=== PATIENT | female | born 1935 | race Caucasian/White ===

== ENCOUNTER → 2017-01-13 | Outpatient (CLI) | payer MEDICARE, BC ==
[~2017-01-13] MED LIST: ADVIL200 MG PO; ALDACTONE 25MG25 M1 PO; ALDACTONE 25MG25 MG PO; ALDACTONE25 MG PO; ASPIRIN 81M81 MG/TA2 PO; ASPIRIN E.C. 8181 MG PO; CALCIUM 600 + V1 TA1 PO; CARDI-OMEGA1000 MG PO; CELEXA 20MG20 MG/TAB PO; CELEXA10 MG PO; CRANBERRY450 MG PO; EPA FISH OIL1000 MG PO; EPA/GLA1 SGL PO; FERROUS SU325 MG/TAB PO; FOLIC ACID 40400 MCG PO; HYDROCODONE/APAP; LIPITOR20 MG PO; LISINOPRIL10 MG PO; MACROBID 1100 MG/CAP PO; MORPHINE PAIN PUMP; MULTIPLE VITAMI1 CAP PO; NEURONTIN300 MG PO; NEURONTIN300 MG/CAP PO; NEURONTIN600 MG/TAB PO; NORCO 325 MG-51 TAB PO; PLAVIX 75MG TAB75 MG PO; POTASSIUM '99'620 MG PO; POTASSIUM PO; PRINIVIL10 MG PO; THERAGRAN1 TA1 PO; TOPROL XL 50MG50 MG PO; TOPROL XL100 MG PO; TOPROL XL25 MG PO; TRICOR145 MG PO; VITAMIN B-625 MG PO; VITAMIN C500 MG PO; ZOCOR40 MG PO; [UNRECOGNIZED DRUG - OTHER] PO
== END ==
LOC: COL.VAS 14:00
DX: M79.89 Other specified soft tissue disorders (principal)

== ENCOUNTER 2017-03-21 20:16 | Emergency (ER) | payer MEDICARE, BC ==
[~2017-03-21] VITALS: Ht 160 cm; Wt 79.5 kg
[2017-03-21 20:19] VITALS: TEMP 98.1
[2017-03-21 20:55] LABS: BASO # 0.1 (0.0-0.2); BASO % 0.7 % (0.0-2.0); EOS # 0.3 (0.0-0.7); EOS % 3.9 % (0-4.0); GRAN # 5.8 (1.4-6.5); GRAN % 66.6 % (42.2-75.2); HEMATOCRIT 40.5 % (37.0-47.0); HEMOGLOBIN 13.3 g/dl (12.5-16.0); LYMPH # 1.6 (1.2-3.4); LYMPH % 18.7 % (20.0-51.0); MEAN CELL VOLUME 90 fl (80.0-100.0); MEAN CORPUSCULAR HEMOGLOBIN 30 pg (27.0-31.0); MEAN CORPUSCULAR HGB CONC 33 g/dl (33.0-37.0); MEAN PLATELET VOLUME 11.8 fl (7.4-10.4); MONO # 0.9 (0.1-0.6); MONO % 9.9 % (1.7-9.3); PLATELET COUNT 173 K/mm3 (130-400); RED BLOOD COUNT 4.48 M/mm3 (4.10-5.30); WHITE BLOOD COUNT 8.7 K/mm3 (4.8-10.8)
[2017-03-21 20:57] LABS: PROTHROMBIN TIME 11.1 SECONDS (9.7-12.8)
[2017-03-21 20:59] LABS: PARTIAL THROMBOPLASTIN TIME 29.6 SECONDS (26.0-37.0)
[2017-03-21 21:01] LABS: CREATININE, serum 1.24 mg/dL (0.52-1.25); POTASSIUM 3.9 mmol/L (3.4-5.0)
[2017-03-21] MEDS ORDERED: NORCO 325 MG-51 TAB PO (21:50)
[2017-03-21 22:11] VITALS: BP 136/69; PULSE 60
== END 2017-03-21 22:14 | disposition home or self-care (01) ==
LOC: COL.ER 20:16
PROVIDERS: Emergency Medicine
DX: M79.81 Nontraumatic hematoma of soft tissue (principal); M79.662 Pain in left lower leg; I10 Essential (primary) hypertension; Z79.02 Long term (current) use of antithrombotics/antiplatelets; Z79.82 Long term (current) use of aspirin; Z86.73 Personal history of transient ischemic attack (TIA), and cerebral infarction without residual deficits; Z95.0 Presence of cardiac pacemaker

== ENCOUNTER 2017-05-21 11:15 | Outpatient (RCR) | payer MEDICARE, BC | END 2017-05-22 08:26 | LOC: MKS.ESL.PT 11:15 | DX: M75.01 Adhesive capsulitis of right shoulder (principal); M41.9 Scoliosis, unspecified | CPT/HCPCS: G8978-GP; G8979-GP; G8980-GP ==

== ENCOUNTER 2017-12-03 19:04 | Emergency (ER) | payer MEDICARE, BC ==
[~2017-12-03] VITALS: Ht 160 cm; Wt 77.3 kg
[2017-12-03 19:06] VITALS: TEMP 98.8
[2017-12-03] MEDS ORDERED: NORCO 325 MG-51 TAB PO (20:19)
[2017-12-03 21:00] VITALS: BP 146/64; PULSE 58
== END 2017-12-03 21:00 | disposition home or self-care (01) ==
LOC: COL.ER 19:04
DX: S42.212A Unspecified displaced fracture of surgical neck of left humerus, initial encounter for closed fracture (principal); Z79.02 Long term (current) use of antithrombotics/antiplatelets; Z86.73 Personal history of transient ischemic attack (TIA), and cerebral infarction without residual deficits; W18.09XA Striking against other object with subsequent fall, initial encounter; Y92.009 Unspecified place in unspecified non-institutional (private) residence as the place of occurrence of the external cause

== ENCOUNTER 2018-04-21 11:15 | Outpatient (RCR) | payer MEDICARE, BC | END 2018-05-18 | disposition home or self-care (01) | LOC: MKS.ESL.PT | DX: S42.202D Unspecified fracture of upper end of left humerus, subsequent encounter for fracture with routine healing (principal); X50.0XXD Overexertion from strenuous movement or load, subsequent encounter; Y93.K1 Activity, walking an animal | CPT/HCPCS: G8987-GP; G8988-GP; G8989-GP ==

== ENCOUNTER → 2018-08-26 | Outpatient (CLI) | payer MEDICARE, BC | LOC: MC.RAD 07:52 | DX: Z12.31 Encounter for screening mammogram for malignant neoplasm of breast (principal) ==

== ENCOUNTER 2018-12-07 03:14 | Emergency (ER) | payer MEDICARE, BC ==
[~2018-12-07] VITALS: Ht 162.6 cm; Wt 79.5 kg
[2018-12-07 03:19] VITALS: TEMP 99.4
[2018-12-07 03:46] LABS: BASO # 0.1 (0.0-0.2); BASO % 0.6 % (0.0-2.0); EOS # 0.3 (0.0-0.7); EOS % 3.3 % (0-4.0); GRAN # 6.1 (1.4-6.5); GRAN % 69.9 % (42.2-75.2); HEMOGLOBIN 13.6 g/dl (12.5-16.0); LYMPH # 1.5 (1.2-3.4); LYMPH % 17.6 % (20.0-51.0); MEAN CELL VOLUME 92 fl (80.0-100.0); MEAN CORPUSCULAR HEMOGLOBIN 30 pg (27.0-31.0); MEAN CORPUSCULAR HGB CONC 32 g/dl (33.0-37.0); MEAN PLATELET VOLUME 11.5 fl (7.4-10.4); MONO # 0.7 (0.1-0.6); MONO % 8.4 % (1.7-9.3); PLATELET COUNT 183 K/mm3 (130-400); RED BLOOD COUNT 4.56 M/mm3 (4.10-5.30)
[2018-12-07 03:53] LABS: ALBUMIN 3.8 gm/dL (3.5-5.0); CALCIUM 9.9 mg/dL (8.4-10.2); CREATININE, serum 1.02 mg/dL (0.52-1.25); POTASSIUM 4.2 mmol/L (3.4-5.0); TOTAL PROTEIN 6.7 gm/dL (6.4-8.2)
[2018-12-07] MEDS ORDERED: K-DUR 10 MEQ T10 MEQ PO (05:02)
[2018-12-07] MEDS ORDERED: CRANBERRY500 M3 PO (05:03)
[2018-12-07] MEDS ORDERED: VITAMIN B-625 MG (05:03)
[2018-12-07 07:18] VITALS: BP 110/68; PULSE 70
== END 2018-12-07 07:19 | disposition home or self-care (01) ==
LOC: COL.ER 03:14
PROVIDERS: Emergency Medicine
DX: G45.9 Transient cerebral ischemic attack, unspecified (principal); R51 Headache; I10 Essential (primary) hypertension; E78.5 Hyperlipidemia, unspecified; Z90.49 Acquired absence of other specified parts of digestive tract; Z98.890 Other specified postprocedural states; Z79.82 Long term (current) use of aspirin; Z79.02 Long term (current) use of antithrombotics/antiplatelets
CPT/HCPCS: J1170; J1200; J1885; J2405; J3010; J7030; J7040

== ENCOUNTER 2020-03-07 19:16 | Emergency (ER) | payer MEDICARE, BC ==
[~2020-03-07] VITALS: Ht 162.6 cm; Wt 77.3 kg
[~2020-03-07 19:16] MED LIST changes: +CRANBERRY500 M3 PO; +K-DUR 10 MEQ T10 MEQ PO; +VITAMIN B-625 MG
[2020-03-07 19:17] VITALS: TEMP 98.5
[2020-03-07] MEDS ORDERED: XARELTO10 MG PO (19:23)
[2020-03-07 20:17] LABS: BASO % 0.4 % (0.0-2.0); EOS # 0.2 (0.0-0.7); EOS % 2.1 % (0-4.0); GRAN # 7.9 (1.4-6.5); GRAN % 80.9 % (42.2-75.2); HEMATOCRIT 39.8 % (37.0-47.0); HEMOGLOBIN 12.6 g/dl (12.5-16.0); LYMPH # 0.8 (1.2-3.4); MEAN CELL VOLUME 95 fl (80.0-100.0); MEAN CORPUSCULAR HEMOGLOBIN 30 pg (27.0-31.0); MEAN CORPUSCULAR HGB CONC 32 g/dl (33.0-37.0); MEAN PLATELET VOLUME 10.7 fl (7.4-10.4); MONO # 0.8 (0.1-0.6); MONO % 7.9 % (1.7-9.3); PLATELET COUNT 153 K/mm3 (130-400); RED BLOOD COUNT 4.19 M/mm3 (4.10-5.30)
[2020-03-07 20:26] LABS: ALBUMIN 3.7 gm/dL (3.5-5.0); BILIRUBIN,TOTAL 1.1 mg/dL (0.0-1.0); CALCIUM 10.2 mg/dL (8.4-10.2); CREATININE, serum 1.26 (0.52-1.25); POTASSIUM 4.4 mmol/L (3.4-5.0); TOTAL PROTEIN 6.9 gm/dL (6.4-8.2)
[2020-03-07 20:28] LABS: INR 2.1 (0.8-3.0); PROTHROMBIN TIME 23.1 SECONDS (9.7-12.8)
[2020-03-07 20:30] LABS: PARTIAL THROMBOPLASTIN TIME 38.1 SECONDS (26.0-37.0)
[2020-03-07 21:22] VITALS: BP 123/59; PULSE 71
== END 2020-03-07 21:35 | disposition short-term general hospital (02) ==
LOC: COL.ER 19:16
PROVIDERS: Emergency Medicine
DX: S06.5X0A Traumatic subdural hemorrhage without loss of consciousness, initial encounter (principal); S01.01XA Laceration without foreign body of scalp, initial encounter; I10 Essential (primary) hypertension; R40.2412 Glasgow coma scale score 13-15, at arrival to emergency department; Z86.73 Personal history of transient ischemic attack (TIA), and cerebral infarction without residual deficits; Z95.0 Presence of cardiac pacemaker; Z79.82 Long term (current) use of aspirin; W17.89XA Other fall from one level to another, initial encounter; Y92.009 Unspecified place in unspecified non-institutional (private) residence as the place of occurrence of the external cause

== ENCOUNTER 2020-03-12 10:56 | Inpatient (IN) | payer MEDICARE, BC ==
[~2020-03-12] VITALS: Ht 160 cm; Wt 81.5 kg
[~2020-03-12 10:56] MED LIST changes: +XARELTO10 MG PO
[2020-03-12] MEDS ORDERED: TYLENOL 325MG325 MG PO (16:07)
[2020-03-12] MEDS ORDERED: VITAMIN B12 1541 TAB PO (16:09)
[2020-03-12] MEDS ORDERED: PEPCID 20MG TAB20 MG PO (16:10)
[2020-03-12] MEDS ORDERED: KEPPRA 500MG500 MG PO (16:11)
[2020-03-12] MEDS ORDERED: LIPITOR20 MG PO (16:11)
[2020-03-12] MEDS ORDERED: CELEXA10 MG PO (16:12)
[2020-03-12 16:45] VITALS: BP 140/43; PULSE 62; TEMP 98.3
--- NOTE | 2020-03-12 17:00 | NUR ---
Patient arrived via wheelchair from [facility] this afternoon. Patient is A&Ox4 and currently resting in bed, call light in reach and alarm is set. Patient eating supper at this time. Patient called her daughter to let her know that she had arrived. Patient was instructed on IPR protocols and use of her call light and TV. Patient denied pain at this time. Will continue to monitor.
--- NOTE | 2020-03-12 19:10 | NUR ---
PATIENT UP IN CHAIR DURING CHANGE OF SHIFT REPORT RECEIVED FROM DAY SHIFT NURSEPELON. CHAIR ALARM ON.
--- NOTE | 2020-03-12 20:00 | NUR ---
DECREASED STRENGTH TO GUS EXTREMITIED WITH MOVEMENT SLOW, REPORTS PAIN TO L KNEE WITH MOVEMENT/WEIGHT BEARING. BED ALARM ON. DENIES NUMBNESS/TINGLING TO GUS EXTREMITIES. DENIES CHEST PAIN/SHORTNESS OF BREATHE AT THIS TIME.
--- NOTE | 2020-03-13 01:12 | NUR ---
PATIENT SLEEPING BREATHING NONLABORED AND EVEN. BED ALARM ON.
--- NOTE | 2020-03-13 03:21 | NUR ---
SLEEPING, BREATHING NONLABORED AND EVEN, DOES NOT AWAKEN WHEN DOOR TO ROOM IS OPENED. BED ALARM ON.
[2020-03-13 06:14] VITALS: BP 133/46; PULSE 60; TEMP 98.4
--- NOTE | 2020-03-13 07:13 | NUR ---
PATIENT UP IN CHAIR DURING CHANGE OF SHIFT REPORT GIVEN TO DAY SHIFT NURSEGIULIANA. CHAIR ALARM ON.
--- NOTE | 2020-03-13 07:15 | NUR ---
shift report received from EDYTA Linder
--- NOTE | 2020-03-13 07:52 | NUR ---
up in chair having breakfast, denies needs
--- NOTE | 2020-03-13 08:30 | NUR ---
physical therapy in to work with patient
--- NOTE | 2020-03-13 09:30 | NUR ---
returned from therapy and resting in recliner, full assessment completed, see interventions for further info, has 3+ edema to lower extremities and feet, has bruising to top of right foot and also to left foot and around the toes on left foot, takes am meds without difficulty
--- NOTE | 2020-03-13 10:15 | NUR ---
speech therapy in to work with patient
--- NOTE | 2020-03-13 11:06 | NUR ---
occupational therapy in working with patient
--- NOTE | 2020-03-13 13:02 | NUR ---
physical therapy in to work with patient
--- NOTE | 2020-03-13 17:49 | NUR ---
has resting in recliner throughout the afternoon, denies needs
[2020-03-13 18:07] VITALS: BP 130/50; PULSE 65; TEMP 97.9
--- NOTE | 2020-03-13 18:50 | NUR ---
bedside shift report given to EDYTA Linder
--- NOTE | 2020-03-13 19:00 | NUR ---
PATIENT UP IN CHAIR, SLEEPING WITH CELL PHONE IN HER HAND DURING CHANGE OF SHIFT REPORT RECEIVED FROM DAY SHIFT NURSE, GIULIANA. AWAKENED WITH NAME CALLED. CHAIR ALARM ON.
--- NOTE | 2020-03-13 20:00 | NUR ---
HX SCOLIOSIS TO BACK, UP WITH HELP WITH GB AND WW. DENIES NUMBNESS/TINGLING TO EXTREMITIES. DENIES CHEST PAIN/SHORTNESS OF BREATHE. ERNESTO TO BACK TO HEAD INTACT WITH DRIED BLOOD MATTING HAIR DOWN WITH NO ACTIVE DRAINAGE/BLEEDING OBSERVED FROM SITE. ANSWERS QUESTIONS APPROPRIATELY, SPEAKS CLEARLY DURING CONVERSATION WITH STAFF. CHAIR ALARM ON WHILE SITTING UP IN CHAIR.
--- NOTE | 2020-03-14 00:30 | NUR ---
Patient sleeping with room lights and TV on. Breathing nonlabored and even and does not awaken when door to room is opened by staff. Bed alarm on.
[2020-03-14 01:35] VITALS: BP 113/55; PULSE 67; TEMP 98.1
--- NOTE | 2020-03-14 07:37 | NUR ---
Patient resting in recliner call light in reach and alarm set. Patient reporting sleeping well last night. Some wheezing to bilateral lower lungs this morning. Will discuss with physician.
--- NOTE | 2020-03-14 07:43 | NUR ---
Patient up in chair, eating breakfast during change of shift report given to day shift nurseMounika. Chair alarm on.
[2020-03-14 08:25] LABS: BASO % 0.6 % (0.0-2.0); EOS # 0.3 (0.0-0.7); EOS % 5.2 % (0-4.0); GRAN # 3.8 (1.4-6.5); GRAN % 76.8 % (42.2-75.2); HEMOGLOBIN 10.1 g/dl (12.5-16.0); LYMPH # 0.5 (1.2-3.4); MEAN CELL VOLUME 95 fl (80.0-100.0); MEAN CORPUSCULAR HEMOGLOBIN 30 pg (27.0-31.0); MEAN CORPUSCULAR HGB CONC 32 g/dl (33.0-37.0); MEAN PLATELET VOLUME 10.8 fl (7.4-10.4); MONO # 0.4 (0.1-0.6); PLATELET COUNT 165 K/mm3 (130-400); RED BLOOD COUNT 3.32 M/mm3 (4.10-5.30); REDCELL DISTRIBUTION WIDTH-CV 14.7 % (11.5-14.5)
[2020-03-14 08:26] LABS: HEMATOCRIT 31.5 % (37.0-47.0)
[2020-03-14 08:36] LABS: CALCIUM 9.4 mg/dL (8.4-10.2); CREATININE, serum 0.93 (0.52-1.25); MAGNESIUM 1.4 mg/dL (1.6-2.3); POTASSIUM 3.9 mmol/L (3.4-5.0)
--- NOTE | 2020-03-14 12:43 | NUR ---
The patient is new to [facility]. DANN met with the patient to complete initial intake. The patient lives in alone in [place]. The patient has a walker, cane, shower chair and is independent with ADLs. The patient has had HHS in the past but does not receive those services now. The patient's PCP is Dr. Delong and patient receives medications from [facility]. The patient does not have advanced directives in the EMR but states they are complete and designate her daughters, Christal and Woodrow/Mounika. DANN will continue to monitor.
--- NOTE | 2020-03-14 16:21 | NUR ---
SW's met with the patient to present and review the IPR Team Conference Note. SW discussed the patient's progress and the team's tentative discharge date for Thursday, 03/23, with home healthPT/OT. The patient reports that she does not want to be here until then. She would like to discharge sooner. DANN then discussed getting a family meeting scheduled for next week, by Thursday. The patient reports that she would like to talk to her children first about setting up a meeting. SW to follow up with the patient and will continue to follow.
[2020-03-14 17:43] VITALS: BP 144/51; PULSE 75; TEMP 97.9
--- NOTE | 2020-03-14 18:31 | NUR ---
Patient was informed of the no visitor policy put into effect this evening.
--- NOTE | 2020-03-14 19:28 | NUR ---
Reported off to night nurse.
--- NOTE | 2020-03-14 21:00 | NUR ---
PLEASANT, ALERT & ORIENTED. ASSESSMENT COMPLETED. HRR. HAS PACEMAKER. HAS PAIN PUMP W/MS FOR CHRONIC BACK PAIN. DR ALEJANDRE MANAGES THIS. TYLENOL GIVEN FOR BACK DISCOMFORT. PAIN INCREASES WITH ACTIVITY. LT FOOT ELEVATED. DARK DISCOLORATION AND BRUISING TO TOES. CALL LIGHT IN REACH. BED ALARM SET.
[2020-03-15 06:00] VITALS: BP 110/45; PULSE 60; TEMP 98.8
--- NOTE | 2020-03-15 07:54 | NUR ---
PATIENT REQUESTING TYLENOL THIS MORNING FOR HER CHRONIC BACK PAIN. PATIENT STATES THAT THE PAIN PUMP DOESNT SEEM TO BE MANAGING HER PAIN VERY WELL. PATIENT REQUESTING FOR DR. ALEJANDRE TO INCREASE HER DOSAGE ON THE PAIN PUMP. DR. OLMSTEAD MADE AWARE OF INADEQUATE PAIN MANAGEMENT.
--- NOTE | 2020-03-15 12:26 | NUR ---
PATIENT REQUESTED A PAIN PILL FOR HER BACK PAIN PRIOR TO FINISHING THERAPY THIS AFTERNOON. PATIENT EDUCATED ON PAIN MANAGEMENT AND REQUESTING PAIN MEDICATIONS WHEN SHE NEEDS THEM. PATIENT STATES THAT THE PAIN IS WORSE WHEN SHE IS UP AND MOVING ON HER FEET. NORCO GIVEN AT THIS TIME. WILL CONTINUE TO MONITOR.
--- NOTE | 2020-03-15 14:25 | NUR ---
Admission QIM scores were reviewed by the team. Code of 5 chosen for oral hygiene was determined by team discussion to be the most usual performance before interventions for this patient during the assessment period. Code of 4 chosen for toilet hygiene was determined by team discussion to be the most usual performance for this patient during the assessment period. Code of 3 chosen for toilet transfers was determined by team discussion to be the most usual performance for this patient during the assessment period. Code of 3 chosen for sit to stand was determined by team discussion to be the most usual performance for this patient during the assessment period. Code of 3 chosen for walk 10 feet was determined by team discussion to be the most usual performance for this patient during the assessment period.--Eusebia Ramachandran, PD
--- NOTE | 2020-03-15 14:30 | NUR ---
PATIENT RESTING IN CHAIR AFTER THERAPY WITH LEGS ELEVATED. PATIENT STATES THAT SHE COULD TELL A DIFFERENCE IN HER PAIN LEVEL THROUGHOUT HER AFTERNOON THERAPY AND STATES THAT IT HAS IMPROVED AND IS NOW TOLERABLE.
[2020-03-15 17:50] VITALS: BP 133/50; PULSE 63; TEMP 97.5
--- NOTE | 2020-03-15 21:00 | NUR ---
PT SITTING IN RECLINER.ENC TO ELEVATE FOOT OF RECLINER MUCH POSSIBLE. PT AGREED. SEVERE SCOLIOSIS NOTED. NOT READY TO GO TO BED YET. PT ASKING FOR PAIN MED FOR LOW BACK PAIN. SEE MAR.
--- NOTE | 2020-03-16 04:21 | NUR ---
PT NEEDED ASSIST OUT OF BED TO SITTING POSITION. ABLE TO TRANSFER SELF TO TOILET AND REMOVE CLOTHING. ABLE TO PERFORM TOILETING TASK AND HYGIENE. BACK TO BED. NEEDED ASSIST LIFTING FEET INTO BED. SCD'S BACK ON. CALL LIGHT IN REACH. BED ALARM SET.
[2020-03-16 06:00] VITALS: BP 114/43; PULSE 59; TEMP 98.6
--- NOTE | 2020-03-16 14:49 | NUR ---
SW met with the patient to address any questions or concerns. The patient did not have any questions or concerns at this time.
--- NOTE | 2020-03-16 16:56 | NUR ---
Patient currently resting in bedside recliner. Patient has remained alert and oriented all shift. Patient uses call light when she has needs, is a SBA when transferring and ambulating. Is able to preform all personal hygiene and toileting activities. Patient has requested PRN pain medication once prior to therapy, administered per request. Patient currently denies needs, call light within reach.
[2020-03-16 18:00] VITALS: BP 117/41; PULSE 62; TEMP 98.1
--- NOTE | 2020-03-16 18:50 | NUR ---
Received report from [place]. Patient is asleep in the wheelchair. Call light within reach.
--- NOTE | 2020-03-16 20:00 | NUR ---
Assisted patient in the bathroom. Cane and gaitbelt utilized. She brushed her teeth independently. Then assisted patient back to bed. She requested for tedhose stockings to be removed. SCD applied on both lower extremities. She states she has back pain with pain score of 4/10. [place] PRN given.
--- NOTE | 2020-03-17 00:05 | NUR ---
Assisted patient in the bathroom to urinate. She states she has tolerable pain. Denies need for pain medication.
--- NOTE | 2020-03-17 02:00 | NUR ---
Lucie EDGAR, assisted patient to the bathroom to urinate. This nurse asked if she has pain and said that she's hurting but not that much. Pain score is 4/10. She just requested for Tylenol instead of [place].
--- NOTE | 2020-03-17 04:20 | NUR ---
Assisted patient in the bathroom. Patient urinate. Assisted back to bed. Put back SCD. She states Tylenol helped her with the pain. Still with pain at the back with pain score of 4-5/10 but refuses pain medication for now.
[2020-03-17 06:09] VITALS: BP 112/45; PULSE 56; TEMP 98.6
--- NOTE | 2020-03-17 07:11 | NUR ---
Endorsed patient to Veronika. Patient had an uneventful night. With complains of pain but was relieved with [place] and Tylenol. She gets up in the bathroom with walker and assisted with gaitbelt.
[2020-03-17 16:48] VITALS: BP 135/49; PULSE 61; TEMP 98.1
--- NOTE | 2020-03-17 18:55 | NUR ---
PATIENT REQUESTED A PAIN PILL PRIOR TO WORKING WITH THERAPIES THIS MORNING. PATIENT UP TO THE CHAIR DURING MY SHIFT WHEN NOT IN THERAPY. PATIENT ABLE TO WALK TO THE RESTROOM WITH CONTACT GAURD DUE TO WEAKNESS. LEGS ELEVATED ON PILLOWS. PATIENT WATCHING TV. CHAIR ALARM ON. REPORT GIVEN TO EDYTA ALVARADO.
--- NOTE | 2020-03-17 19:26 | NUR ---
Received report from Veronika. Patient is awake sitting in the recliner. She verbalizes need for help in getting to the bathroom. Assisted patient with gaitbelt and she uses her walker. She changed her clothes as well with assistance. Returned back to recliner.
[2020-03-18 06:01] VITALS: BP 130/52; PULSE 68; TEMP 97.9
--- NOTE | 2020-03-18 07:06 | NUR ---
Patient had an uneventful night. Requested for pain medicine once last night. She would call for assistance in the bathroom. Endorsed patient to Emerita. Patient at recliner right now.
--- NOTE | 2020-03-18 07:10 | NUR ---
up in recliner appears to be dozing,
--- NOTE | 2020-03-18 09:00 | NUR ---
full assessment completed, see intervention for further info
--- NOTE | 2020-03-18 10:00 | NUR ---
assosted up to bathroom and voids qs, c/o some urgency with urination and minimal burning, UA collected and to lab, dressed independently
[2020-03-18 10:28] LABS: COLLECTION METHOD CLEAN CATCH
[2020-03-18 10:38] LABS: MUCOUS Present /lpf; PH 7 (5-8); SQUAMOUS EPITHELIAL 0-2 /hpf; URINE APPEARANCE Hazy; URINE BACTERIA None Seen /hpf; URINE BILIRUBIN Negative (NEGATIVE); URINE BLOOD Negative (NEGATIVE); URINE COLOR Yellow; URINE GLUCOSE Negative (NEGATIVE); URINE KETONE Negative (NEGATIVE); URINE LEUKOCYTE ESTERASE 3+ (NEGATIVE); URINE NITRATE Negative (NEGATIVE); URINE PROTEIN(semi-quant) Negative (NEGATIVE); URINE RBC 0-2 /hpf
--- NOTE | 2020-03-18 10:44 | NUR ---
ZULMA Cristobal notified results of urine are back, verbalizes understanding
--- NOTE | 2020-03-18 12:30 | NUR ---
remains up in chair, is now having lunch
[2020-03-18 16:30] VITALS: BP 119/52; PULSE 60; TEMP 99.1
--- NOTE | 2020-03-18 16:41 | NUR ---
has been in recliner throughout the day, assisted up to bathroom when requested, moves with slow steady gait,
--- NOTE | 2020-03-18 18:43 | NUR ---
PATIENT UP IN CHAIR, HAS NOT C/O CURRENTLY, STATED SHE WOULD LIKE PAIN MEDS WITH HS MEDS OF EITHER TYLENOL OR NORCO. CHAIR ALARM ON.
--- NOTE | 2020-03-18 20:00 | NUR ---
CONTINUES WITH SCOLIOSIS TO BACK, ABLE TO AMB WITH SBA WHEN UP WALKING, GETS UP FROM SIT TO STAND SLOWLY WITH NO PROBLEMS BUT IS UNABLE TO STAND UP STRAIGHT D/T SEVERE SCOLIOSIS, C/O BACK PROBLEMS AND PAIN AT TIMES. DENIES NUMBNESS/TINGLING TO EXTREMITIES AT THIS TIME. EDEMA WORSE TO LLE COMPARED TO RLE. NO PROBLEMS WITH SWALLOWING MEDS WHOLE OR EATING SOLID FOOD.
--- NOTE | 2020-03-19 03:30 | NUR ---
PATIENT SLEEPING, DOES NOT AWAKEN WHEN DOOR TO ROOM IS OPENED BY STAFF, OBSERVED RESP NONLABORED AND EVEN. BED ALARM ON.
[2020-03-19 05:58] VITALS: BP 138/49; PULSE 66; TEMP 98.6
--- NOTE | 2020-03-19 07:00 | NUR ---
PATIENT UP IN CHAIR DURING REPORT WITH CHAIR ALARM ON.
--- NOTE | 2020-03-19 12:29 | NUR ---
Food Services Director met with patient to follow up from the weekend. Patient states the weekend went well. SW spoke with patient about Home Health and provided Medicare.gov list of HH agencies. Patient states she will look this over but didn't want to pick one right now. Patient would like to review this list with her daughter. SW contacted patient's daughter, Christal to schedule family meeting for 03/20/20 @ [id number]. DANN provided meeting time to Eusebia [facility] Director. DANN will continue to follow.
--- NOTE | 2020-03-19 16:07 | NUR ---
Patient resting in recliner at this time, call light in reach and alarm set. Patient given her rocephin this afternoon. Patient has some expiratory wheezing to her left upper lobe. She was encouraged to cough, deep breath and to continue to use her IS. Patient currently does not have any orders for any breathing treatments will discuss with the physician.
--- NOTE | 2020-03-19 16:21 | NUR ---
Worked with patient using her IS device. Patient used appropriatly twice out of ten tries this afternoon. Patient was educated on how to use it and encouraged to use at least 5 times an hour. RT stopped by to check on patient as well. She has not had any SOB at rest only with exercising with PT and OT. Will continue to monitor.
[2020-03-19 17:24] VITALS: BP 140/77; PULSE 62; TEMP 98
--- NOTE | 2020-03-19 19:07 | NUR ---
PATIENT UP IN CHAIR DURING CHANGE OF SHIFT REPORT RECEIVED FROM DAY SHIFT NURSEPELON. CHAIR ALARM ON. NO OTHER NEEDS REPORTED.
--- NOTE | 2020-03-20 02:03 | NUR ---
UP TO BATHROOM ROOM, DENIES ANY NEEDS AT THIS TIME, AMBULATES WITH STEADY GAIT WITH OBSERVED SLOW MOVEMENT CURRENTLY.
[2020-03-20 05:24] VITALS: BP 123/52; PULSE 61; TEMP 99
--- NOTE | 2020-03-20 06:03 | NUR ---
PATIENT SLEEPING, DENIES ANY NEEDS WHEN VS TAKEN. BED ALARM ON.
--- NOTE | 2020-03-20 07:11 | NUR ---
PATIENT UP IN CHAIR DURING CHANGE OF SHIFT REPORT GIVEN TO DAY SHIFT NURSEPELON. CHAIR ALARM ON.
--- NOTE | 2020-03-20 07:42 | NUR ---
Patient resting in recliner, call light in reach and chair alarm set. Patient denies pain without movement, but once she starts moving pain to her back is felt. Will continue to monitor.
--- NOTE | 2020-03-20 11:11 | NUR ---
Patient at group therapy at this time.
--- NOTE | 2020-03-20 14:05 | NUR ---
Mallet And Die Cutter participated in family meeting which included IPR Director Eusebia and PT/OT/ST. Patient's daughter, Christal participated by phone. Eusebia opened the meeting by explaining it's purpose then PT/OT/ST reviewed patient's progress. Discharge date is set for 03/23/20. SW followed up with patient after the meeting to discuss HH options. Patient states she is having difficulty choosing a HH agency because she doesn't know anything about them. Patient would like two referrals sent out and for the agencies to call her on her cell phone (ph#[phone]) so she can talk with them before making a final decision. Patient would like referrals sent to [facility] and [facility]. SW faxed referrals then called Gela at [facility] and Ronda at [facility] to provide request that they call patient. DANN called patient's daughter, Christal and left a message. DANN will continue to follow.
--- NOTE | 2020-03-20 16:45 | NUR ---
Left message for Dr. Delong's office for a return call to set up one week follow up appointment for patient. Awaiting a return call.
[2020-03-20 16:57] VITALS: BP 120/44; PULSE 60; TEMP 98.8
--- NOTE | 2020-03-20 18:56 | NUR ---
PATIENT UP IN CHAIR DURING CHANGE OF SHIFT REPORT RECEIVED FROM DAY SHIFT NURSEPELON. CHAIR ALARM ON.
--- NOTE | 2020-03-20 19:08 | NUR ---
Patient will be discharged on Thursday. Denies any questions at this time. Appointment for neuro still needs to be made and question if patient can have her siena removed before discharge will be discussed with Dr. Sanchez via the day nurse.
--- NOTE | 2020-03-20 19:58 | NUR ---
PATIENT DENIES ANY NEEDS FOR PAIN AT THIS TIME, DOES REQUEST TO HAVE PAIN MEDS WITH HS MEDS TO HELP WITH PAIN DURING SLEEP/NIGHT ACTIVITIES. CONTINUES WITH SCOLIOSIS TO BACK, AMBULATES SLUMPED POSTURE.
--- NOTE | 2020-03-21 00:44 | NUR ---
PATIENT SLEEPING, DOES NOT AWAKEN WHEN DOOR TO ROOM IS OPENED BY STAFF. BREATHING NONLABORED AND EVEN. BED ALARM ON.
[2020-03-21 06:28] VITALS: BP 119/52; PULSE 60; TEMP 99
--- NOTE | 2020-03-21 07:44 | NUR ---
PATIENT UP IN CHAIR DURING CHANGE OF SHIFT REPORT GIVEN TO DAY SHIFT NURSESAFIA. CHAIR ALARM ON.
--- NOTE | 2020-03-21 16:14 | NUR ---
Costuming Supervisor met with patient to review and provide copy of team conference notes. Discharge date is set for 03/23/20. Patient advised she has been in contact with [facility] and wants to choose them to provide services. DANN contacted Adrianne at [facility] and will fax discharge orders on Thursday. DANN contacted Ronda at [facility] and thanked her for reviewing referral. DANN contacted patient's daughter, Christal to provide update. DANN will continue to follow.
[2020-03-21 17:15] VITALS: BP 113/45; PULSE 60; TEMP 97.8
--- NOTE | 2020-03-21 19:00 | NUR ---
PATIENT IS MOD-I IN THE ROOM. DURING SHIFT REPORT PATIENT WAS WALKING FROM THE BATHROOM TO THE RECLINING CHAIR. PATIENT DENIES ANY NEEDS AT THIS TIME. REPORT GIVEN TO EDYTA ALVARADO.
--- NOTE | 2020-03-21 19:10 | NUR ---
Received report from Veronika. Seen patient awake, sitting in the recliner. With INT on right forearm. Assisted patient in the bathroom. She is a standby assist. She walks with a steady gait. She brushed her teeth unassisted. With tedhose stockings on bilateral lower extremities. Call light within reach.
--- NOTE | 2020-03-21 22:00 | NUR ---
Patient complains of tightness on her SCD and feels like she was having difficulty of breathing because of it. SCD's were removed. SPO2 checked, 94% on room air. She said she feels like the setting on her SCD were changed. Will recheck her again.
--- NOTE | 2020-03-22 | NUR ---
Patient called and asked for assistance in the bathroom. This nurse asked the patient if she still have some difficulty of breathing and she said she don't think so as she was asleep. After urinating, asked again if she's having difficulty of breathing now and she said no.
[2020-03-22 05:46] VITALS: BP 135/59; PULSE 61; TEMP 98.5
--- NOTE | 2020-03-22 09:50 | NUR ---
CALLED AND NOTIFIED THAT THE PATIENT HAS A RASH UNDERNEATH HER PANNUS. TORB DESENEX POWDER FROM TO THIS NURSE.
[2020-03-22] MEDS ORDERED: DESENEX TP (11:35)
[2020-03-22] MEDS ORDERED: PEPCID 20MG TAB20 MG PO (11:35)
[2020-03-22] MEDS ORDERED: KEPPRA 500MG500 MG PO (11:36)
[2020-03-22] MEDS ORDERED: OMNICEF 300MG300 MG PO (11:38)
--- NOTE | 2020-03-22 16:02 | NUR ---
Publications Editor collaborated with Veronika LAN to schedule follow up appointment for Neurology. Per Veronika, patient does not have established neurologist. SW contacted patient's daughter, Christal to inquire if patient sees a local neurologist. Christal states patient does not but would like appointment set up wherever Dr. Delong (primary care) recommends. DANN contacted EDYTA Vicente-Card Grinder Helper at [facility] who followed up with Dr. Delong on this request. Cinthia advised Dr. Delong recommends Dr. Arredondo. DANN provided this information to Veronika who will schedule follow up. SW will continue to follow.
[2020-03-22 16:41] VITALS: BP 143/50; PULSE 62; TEMP 98
--- NOTE | 2020-03-22 19:00 | NUR ---
PATIENT IS SITTING UP IN THE BEDSIDE CHAIR DURING SHIFT REPORT. PATIENT DENIES PAIN AT THIS TIME. PATIENT MELINDA IN THE ROOM THROUGHOUT MY SHIFT. REPORT GIVEN TO EDYTA REIS.
--- NOTE | 2020-03-22 20:30 | NUR ---
PT SITTING IN RECLINER. MOD I IN ROOM. PLANNED DISCHARGE TOMORROW. NOTED SEVERE SCOLIOSIS. ABLE TO MANAGE SELF CARES AND AMBULATION WITH WALKER. ENC PT TO CALL FOR ASSISTANCE IF NEEDED. SEE MAR FOR PAIN MEDS GIVEN THIS SHIFT. INT TO RT FOREARM INFILTRATED. DC'D AT THIS TIME. PT VERY DIFFICULT STICK. WILL CONFER WITH IN AM REGARDING CHANGING OVER TO PO ABT. DEEP RED INFLAMMATION TO PANNUS AND BILAT GROIN. AREA CLEANED AND DRIED WELL. APPLIED DESENEX TO THIS AREA. PT HAS TIGHT GIRDLE LIKE UNDERWEAR WITH VAGINAL PAD FOR URINARY INCONTINENCE NOTED. ENC TO BUY LOOSE FITTING UNDERWEAR. REFUSES TO TAKE OFF TO LET AIR. PLACED PILLOW CASE TO PANNUS AREA.
[2020-03-23 05:34] VITALS: BP 125/60; PULSE 60; TEMP 98.9
--- NOTE | 2020-03-23 09:51 | NUR ---
Patient resting in recliner at this time, call light in reach and is independent in her room. Patient uses walker for ambulation. Independent with grooming and eating, walking with walker, independent with mobility in bed and out of bed. Wipes self and applies desenex powder independently this morning. Patient thinks she will be leaving later this afternoon. SW visited with patient. Reports some mild pain and given prn pain med this am. Will continue to monitor.
--- NOTE | 2020-03-23 10:01 | NUR ---
Belt Line Feeder met with patient, who will discharge today. SW read IM form aloud to patient who verbalized understanding and gave SW permission to sign on her behalf. SW placed form in chart and provided copy to patient. DANN faxed discharge orders to [facility]. No additional needs at this time.
--- NOTE | 2020-03-23 12:27 | NUR ---
Patient resting in recliner and is independent with therapies. This nurse removed 6 siena from posterior area of patient's head. Patient tolerated with minimal discomfort reported. Patient denies any pain at this time.
--- NOTE | 2020-03-23 15:59 | NUR ---
Patient Health Summary, Discharge Summary, and Home Meds printed and reviewed with patient and daughter. Stressed importance of follow up appointments. Called prescriptions for KEPPRA, Pepcid, Omnicef and Citalopram to [facility] as the original Rx was sent to wrong pharmacy [facility]. This nurse cancelled the order to [facility] so that [facility] could bill insurance company properly. Belongings gathered by patient and Mounika/RN including quad cane, cell phone, track machine operator repairer, clothes, ring, glasses and dirty clothes from hamper. Patient tranported via wheelchair by WANDER/Audie and seatbelted for ride home with daughter. Patient and daughter denied questions.
== END 2020-03-23 16:00 | disposition home health service (06) | DRG 950 ==
PROVIDERS: ADMIT Internal Medicine
DX: S06.5X9D Traumatic subdural hemorrhage with loss of consciousness of unspecified duration, subsequent encounter (principal); I10 Essential (primary) hypertension; I48.0 Paroxysmal atrial fibrillation; G89.29 Other chronic pain; W19.XXXD Unspecified fall, subsequent encounter; Z86.73 Personal history of transient ischemic attack (TIA), and cerebral infarction without residual deficits; Z95.0 Presence of cardiac pacemaker; Z96.651 Presence of right artificial knee joint; Z88.2 Allergy status to sulfonamides; Z88.5 Allergy status to narcotic agent
CPT/HCPCS: 99222-AI; 99232-AI; 99239; A9284; J0696

== ENCOUNTER → 2020-05-14 | Outpatient (CLI) | payer MEDICARE, BC ==
[~2020-05-14] MED LIST changes: +DESENEX TP; +KEPPRA 500MG500 MG PO; +OMNICEF 300MG300 MG PO; +PEPCID 20MG TAB20 MG PO; +TYLENOL 325MG325 MG PO; +VITAMIN B12 1541 TAB PO
== END ==
LOC: COL.RAD 11:15
DX: S06.5X9A Traumatic subdural hemorrhage with loss of consciousness of unspecified duration, initial encounter (principal)

== ENCOUNTER → 2021-02-06 | Outpatient (CLI) | payer MEDICARE, BC ==
[~2021-02-06] MED LIST changes: +AMOXICILLIN 8751 TAB PO; +CALCIUM 600 PLU1 TAB PO; +CRANBERRY250 MG PO; +MOBIC15 MG PO; +NATURAL POTASS595 MG PO; +OMEGA-3 1000 MG1 CAP PO; +ONE-A-DAY ESSE1 EACH PO; +PRINIVIL2.5 MG PO; +PROTONIX 40MG T40 MG PO; +ROXANOL 20MG20 MG/ML IL; +SENNA-LAX8.6 MG PO; +VITAMIN D31000 I1 PO; +ZOFRAN 4MG T4 MG/TAB PO
== END ==
LOC: COL.PUL 08:00
DX: Z01.812 Encounter for preprocedural laboratory examination (principal); J84.10 Pulmonary fibrosis, unspecified; J98.11 Atelectasis; J98.6 Disorders of diaphragm; K44.9 Diaphragmatic hernia without obstruction or gangrene; E27.8 Other specified disorders of adrenal gland; M47.816 Spondylosis without myelopathy or radiculopathy, lumbar region; M41.86 Other forms of scoliosis, lumbar region; Z90.49 Acquired absence of other specified parts of digestive tract; Z95.0 Presence of cardiac pacemaker; Z96.82 Presence of neurostimulator
CPT/HCPCS: Q9967

== ENCOUNTER 2021-04-24 16:22 | Observation (INO) | payer MEDICARE, BC ==
[~2021-04-24] VITALS: Ht 160 cm; Wt 76.7 kg
[~2021-04-24 16:22] MED LIST changes: -AMOXICILLIN 8751 TAB PO; -CALCIUM 600 PLU1 TAB PO; -CRANBERRY250 MG PO; -MOBIC15 MG PO; -NATURAL POTASS595 MG PO; -OMEGA-3 1000 MG1 CAP PO; -ONE-A-DAY ESSE1 EACH PO; -PRINIVIL2.5 MG PO; -PROTONIX 40MG T40 MG PO; -ROXANOL 20MG20 MG/ML IL; -SENNA-LAX8.6 MG PO; -VITAMIN D31000 I1 PO; -ZOFRAN 4MG T4 MG/TAB PO
[2021-04-24 16:48] LABS: BASO # 0.1 (0.0-0.2); BASO % 0.3 % (0.0-2.0); EOS # 0.1 (0.0-0.7); EOS % 0.8 % (0-4.0); GRAN # 13.6 (1.4-6.5); GRAN % 87.3 % (42.2-75.2); HEMATOCRIT 43.5 % (37.0-47.0); LYMPH # 0.9 (1.2-3.4); LYMPH % 5.5 % (20.0-51.0); MEAN CELL VOLUME 83 fl (80.0-100.0); MEAN CORPUSCULAR HEMOGLOBIN 25 pg (27.0-31.0); MEAN CORPUSCULAR HGB CONC 30 g/dl (33.0-37.0); MEAN PLATELET VOLUME 11.4 fl (7.4-10.4); MONO # 0.9 (0.1-0.6); MONO % 5.7 % (1.7-9.3); PLATELET COUNT 162 K/mm3 (130-400); RED BLOOD COUNT 5.24 M/mm3 (4.10-5.30); REDCELL DISTRIBUTION WIDTH-CV 19.6 % (11.5-14.5)
[2021-04-24 17:01] LABS: ALANINE AMINOTRANSFERASE 18 U/L (4-34); ALBUMIN 3.8 gm/dL (3.5-5.0); ALKALINE PHOSPHATASE 102 U/L (50-136); ANION GAP 6 mmol/L (7-16); AST,SGOT 40 U/L (15-37); BILIRUBIN,TOTAL 0.9 mg/dL (0.0-1.0); BLOOD UREA NITROGEN 26 mg/dL (7-17); CALCIUM 9.5 mg/dL (8.4-10.2); CARBON DIOXIDE 27 mmol/L (22-30); CHLORIDE 104 mmol/L (98-107); CREATININE, serum 1.04 (0.52-1.25); GLUCOSE 103 mg/dL (74-106); POTASSIUM 4.8 mmol/L (3.4-5.0); SODIUM 137 mmol/L (137-145); TOTAL PROTEIN 7.3 gm/dL (6.4-8.2)
[2021-04-24 17:13] LABS: TROPONIN-I < 0.012 ng/mL (0.000-0.035)
[2021-04-24] MEDS ORDERED: PRINIVIL2.5 MG PO (19:53)
[2021-04-24] MEDS ORDERED: ALDACTONE 25MG25 M1 PO (19:53)
[2021-04-24] MEDS ORDERED: MOBIC15 MG PO (19:54)
[2021-04-24] MEDS ORDERED: CELEXA10 MG PO (19:54)
[2021-04-24] MEDS ORDERED: ZOFRAN 4MG T4 MG/TAB PO (19:55)
[2021-04-24] MEDS ORDERED: CALCIUM 600 PLU1 TAB PO (19:56)
[2021-04-24] MEDS ORDERED: NATURAL POTASS595 MG PO (19:56)
[2021-04-24] MEDS ORDERED: VITAMIN D31000 I1 PO (19:57)
[2021-04-24] MEDS ORDERED: OMEGA-3 1000 MG1 CAP PO (19:57)
[2021-04-24] MEDS ORDERED: CRANBERRY250 MG PO (19:57)
[2021-04-24] MEDS ORDERED: ONE-A-DAY ESSE1 EACH PO (19:57)
[2021-04-24] MEDS ORDERED: SENNA-LAX8.6 MG PO (19:58)
[2021-04-24] MEDS ORDERED: PROTONIX 40MG T40 MG PO (19:58)
[2021-04-24 20:18] LABS: COLLECTION METHOD CLEAN CATCH
[2021-04-24] MEDS ORDERED: PRINIVIL10 MG PO (20:33)
[2021-04-24 20:37] LABS: PH 7 (5-8); SQUAMOUS EPITHELIAL None Seen /hpf; URINE APPEARANCE Clear; URINE BACTERIA None Seen /hpf; URINE BILIRUBIN Negative (NEGATIVE); URINE BLOOD Negative (NEGATIVE); URINE COLOR Yellow; URINE GLUCOSE Negative (NEGATIVE); URINE KETONE Negative (NEGATIVE); URINE LEUKOCYTE ESTERASE Negative (NEGATIVE); URINE NITRATE Negative (NEGATIVE); URINE PROTEIN(semi-quant) Negative (NEGATIVE); URINE RBC 0-2 /hpf
[2021-04-24 21:37] LABS: PROTHROMBIN TIME 11.4 SECONDS (9.7-12.8)
[2021-04-24 21:39] LABS: PARTIAL THROMBOPLASTIN TIME 28.3 SECONDS (26.0-37.0)
[2021-04-24 21:43] LABS: CHOLESTEROL RISK RATIO 2.1; MAGNESIUM 1.4 mg/dL (1.6-2.3)
[2021-04-24] MEDS ORDERED: ROXANOL 20MG20 MG/ML IL (22:10)
[2021-04-24 22:24] VITALS: BP 142/73; PULSE 82; TEMP 97.7
--- NOTE | 2021-04-24 22:54 | NUR ---
PT ADMITTED TO UNIT. ASSESSMENT COMPLETED. PT HAS NS RUNNING THROUGH IV AT 75ML/HR. 2+ EDEMA NOTED TO BLE, SENSITIVE TO TOUCH, PT SAYS THIS IS NORMAL FOR HER WHEN LEGS HAVE NOT BEEN ELEVATED. SCDS APPLIED PER ORDERS, PT IS TOLERATING WELL. HERNIA NOTED TO ABDOMEN, PT DENIES ANY PAIN WHEN PALPATING. SKIN FOLDS ON LOWER ABDOMEN AND PERINEAL AREA APPEAR RED, RAW, MOIST, AND HAVE SOME SKIN BREAKDOWN. PT STATES SHE TRIES TO KEEP THE DRY AT HOME WITH POWDER AND TOILET PAPER. THIS NURSE APPLIED INTERDRY AND BARRIER CREAM TO THE AREAS. PT HAS NO OTHER CONCERNS AT THIS TIME. CALL LIGHT WITHIN REACH, PT ORIENTED TO ROOM. WILL CONTINUE TO MONITOR.
[2021-04-25 03:28] VITALS: BP 131/48; PULSE 70; TEMP 98.3
--- NOTE | 2021-04-25 06:18 | NUR ---
PT HAD AN ACTIVE NIGHT. PT UP FREQUENTLY TO USE THE COMMODE. PT COMPLAINING OF PAIN AND TROUBLE FALLING ASLEEP. PRN MEDICATION GIVEN TO HELP WITH THESE, BUT WERE NOT RESOLVED.
--- NOTE | 2021-04-25 07:00 | NUR ---
Report with EDYTA Doty and EDYTA Donohue. Pt resting in bed, reports lightheadedness and slight nausea. IVF's infusing per orders. Pt assisted with repositioning in bed. Call light in reach.
[2021-04-25 08:34] VITALS: BP 149/77; PULSE 66; TEMP 97.8
--- NOTE | 2021-04-25 09:53 | NUR ---
Initial visit; Patient ignacio, thanked Receiver/Laborer for stopping and offering blessings. Receiver/Laborer will follow up and keep Cinthia in her prayers.
--- NOTE | 2021-04-25 11:25 | NUR ---
DANN met with the patient to discuss discharge plan. The patient lives alone in [place]. She states that her daughter, Christal, also lives in [place]. She reports independence with ADLs and has a cane. She states that she receives home health services from [facility]. DANN contacted and confirmed services with Gela at [facility]. DANN faxed updates to [facility]. The patient's PCP is Dr. Yobani Delong and she receives her medications from [facility]. She reports no difficulties obtaining her meds. The patient does not have a DPOA-HC in EMR, but she states that she does have one completed and that it designates Christal. She states that her PCP's office should have a copy of it. The patient states that she is not and that she has five children: Christal, Naomie, Cat, Emerita, and Ananda. DANN contacted Digna television news producer, at [facility] to inquire if they have a copy of the DPOA-HC. Digna reports that they do and she will fax the DPOA-HC to the medical unit. The patient plans to return home and resume home health services from [facility] upon discharge. DANN asked the PA for PT/OT to be ordered. DANN then contacted the phone number on file for Christal to review the above. The patient's other daughter, Cat, answered the phone. Cat reports that this is her phone number. Cat provided SW with Christal's phone number: [phone]. DANN reviewed the above with Cat. Cat confirmed the above and states that she will update her sister, Christal. DANN notified admissions of the correct phone number for Christal. SW to continue to follow. *Discharge plan: home with [facility]*
[2021-04-25 12:00] VITALS: BP 122/48; PULSE 59; TEMP 97.1
[2021-04-25 17:24] VITALS: BP 162/74; PULSE 61; TEMP 98.9
[2021-04-25 19:57] VITALS: BP 124/49; PULSE 59; TEMP 98.3
[2021-04-26] VITALS: BP 119/52; PULSE 60; TEMP 98.8
[2021-04-26 04:58] VITALS: BP 122/54; PULSE 60; TEMP 98.2
--- NOTE | 2021-04-26 05:23 | NUR ---
PT A/0X4, 02 2L NC, POTTASIUM 03/20 BAG INFUSED TO PERIPHERAL LINE, ANTIBIOTICS INFUSING VIA PERIPHERAL LINE, PROMETHAZINE IV ADMINISTERED TO LEFT FA INT, PT REPORTS FEELING "A LITTLE BETTER", PT REPORTS PAIN TO ABDOMEN AT 7/10 PAIN SCALE, ABDOMEN IS DISTENDED AND MORE PAINFUL IN THE UPPER QUADRANTS, PT HAS HAD TW0 EPISODES OF EMESIS, ABOUT 200ML EACH, YELLOW COLOR NOTED, PT EXPRESSES NO ADDITONAL NEEDS AT THIS TIME. CALL LIGHT WITHIN REACH.
--- NOTE | 2021-04-26 05:55 | NUR ---
PT HAD UNEVENTFUL NIGHT, A/OX4, VSS, 02 1.5L PATIENT DESATTED TO 88 AND REQUIRED INTERVENTION, PT DENIES CHEST PAIN, PT EXPRESSES NO ADDITIONAL NEEDS AT THIS TIME. CALL LIGHT WITHIN REACH.
--- NOTE | 2021-04-26 07:00 | NUR ---
Report received from EDYTA Donohue. PT in bed resting, wants to go to bathroom. Will continue to monitor.
[2021-04-26 07:44] LABS: HEMOGLOBIN 11.1 g/dl (12.5-16.0); MEAN CELL VOLUME 83 fl (80.0-100.0); MEAN CORPUSCULAR HEMOGLOBIN 25 pg (27.0-31.0); MEAN CORPUSCULAR HGB CONC 30 g/dl (33.0-37.0); MEAN PLATELET VOLUME 11.8 fl (7.4-10.4); PLATELET COUNT 144 K/mm3 (130-400); RED BLOOD COUNT 4.39 M/mm3 (4.10-5.30); REDCELL DISTRIBUTION WIDTH-CV 19.9 % (11.5-14.5)
[2021-04-26 07:49] LABS: HEMATOCRIT 36.6 % (37.0-47.0)
[2021-04-26 08:00] VITALS: BP 138/62; PULSE 63; TEMP 98.2
[2021-04-26 08:04] LABS: CALCIUM 9.1 mg/dL (8.4-10.2); CREATININE, serum 1.12 (0.52-1.25); POTASSIUM 4.1 mmol/L (3.4-5.0)
--- NOTE | 2021-04-26 11:19 | NUR ---
Assessment charted. Pt in chair at side of bed resting, doing well, states she feels better. Interdry on pannus and requested antifungal powder with hospitalist team. PT is alert and oriented. Resting in chair on phone, will continue to monitor.
[2021-04-26 11:23] VITALS: BP 135/50; PULSE 63; TEMP 97.6
[2021-04-26] MEDS ORDERED: AMOXICILLIN 8751 TAB PO (11:46)
[2021-04-26] MEDS ORDERED: DESENEX TP (11:47)
[2021-04-26] MEDS ORDERED: ASPIRIN 81M81 MG/TA2 PO (11:49)
[2021-04-26] MEDS ORDERED: PLAVIX 75MG TAB75 MG PO (12:00)
--- NOTE | 2021-04-26 13:51 | NUR ---
PT/OT are recommending that the patient can return home and resume home health. The patient is to discharge back home today, 04/26, with home health services for retirement/PT/OT from [facility]. DANN notified and faxed d/c orders to Gela at [facility]. No additional needs at this time.
--- NOTE | 2021-04-26 15:51 | NUR ---
Discharge teachign completed at [facility] time. INT dc'd, tip intact. Pt recieved discharge packet, reviewed new scripts, f/u appointmetns,education. Pt verbalzied understanding. Leaving with all belonging, escorted out via w/c with medical staff, family to drive home, criteria met.
== END 2021-04-26 15:50 | disposition home or self-care (01) ==
LOC: COL.ER 16:22 → MEDICAL 20:59
PROVIDERS: Emergency Medicine; Nurse Practitioner Family; Physician Assistant; ADMIT Internal Medicine
DX: R07.89 Other chest pain (principal); I10 Essential (primary) hypertension; I48.91 Unspecified atrial fibrillation; I27.20 Pulmonary hypertension, unspecified; R19.7 Diarrhea, unspecified; I50.30 Unspecified diastolic (congestive) heart failure; K44.9 Diaphragmatic hernia without obstruction or gangrene; R00.1 Bradycardia, unspecified; G89.29 Other chronic pain; M54.9 Dorsalgia, unspecified; M41.9 Scoliosis, unspecified; L30.4 Erythema intertrigo; Z79.899 Other long term (current) drug therapy; Z86.73 Personal history of transient ischemic attack (TIA), and cerebral infarction without residual deficits; Z20.822 Contact with and (suspected) exposure to COVID-19; Z86.79 Personal history of other diseases of the circulatory system; Z83.3 Family history of diabetes mellitus
CPT/HCPCS: G0378; J2270; J2405; J2543; J2550; J7030; J7120